=== PATIENT | female | born 1980 | race Caucasian/White ===

== ENCOUNTER 2021-06-05 06:08 | Day surgery (SDC) | payer OTHER, SELFPAY ==
[2021-06-01 13:53] VITALS: BMI 37.0
[2021-06-05] VITALS (9 sets, daily range): BP systolic 109–123; BP diastolic 68–81; PULSE 63–889; RESP 10–16; TEMP 36.1–36.6; O2SAT 95–100; BMI 32.8
--- NOTE | 2021-06-05 | DI.RAD.S_ITS ---
PROCEDURE: XR LUMBAR SPINE 2-3V INDICATIONS: L5-S1 MICRODISCECTOMY TECHNIQUE: 2 views of the lumbar spine were acquired. COMPARISON: None. FINDINGS: Intraoperative images demonstrating surgical instrument with the tip projecting at the L5-S1 level. Dictated by: Jose Cruz Mims M.D. on 06/05/2021 at 11:58 Approved by: Jose Cruz Mims M.D. on 06/05/2021 at 11:58
[2021-06-05] MEDS: LACTATED RINGERS 1,000 ML 42 ML IV ×2 (07:07→08:45)
[2021-06-05 07:18] LABS: Pregnancy Test Serum,Qual Negative (Negative)
--- NOTE | 2021-06-05 07:42 | P.HP_ITS ---
History of Present Illness History of Present Illness Chief complaint: [facility] [place] Narrative: Ms. Mercado is a 40 yo F with 4 months hx of acute worsening of chronic radicular pain to her right leg. She failed conservative care with no improvement of her symptoms. She is scheduled for L5-S1 right microdiscectomy. Patient History Medical History Lumbar disc herniation with radiculopathy Family & Social History Social History: household members spouse,children Tobacco & Substance use: Smoking Status Never smoker alcohol intake current alcohol intake frequency a few times a month Substance Use Type does not use Meds Home Medications and Allergies Home Medications Medication Instructions Recorded Confirmed Type cyclobenzaprine 10 mg tablet 10 mg PO BEDTIME PRN 06/01/21 06/05/21 History meloxicam 15 mg tablet 15 mg PO DAILY 06/01/21 06/05/21 History buspirone 15 mg tablet 15 mg PO TID PRN 06/05/21 06/05/21 History dextroamphetamine-amphetamine ER 20 mg PO DAILY 06/05/21 06/05/21 History 20 mg 24hr capsule,extend release (Adderall XR) sertraline 50 mg tablet 50 mg PO DAILY 06/05/21 06/05/21 History Allergies Allergy/AdvReac Type Severity Reaction Status Date / Time No Known Drug Allergies Allergy Verified 06/05/21 06:35 Exam Vital Signs (past 8 hours): - 06/05/21 06:39 Temperature 97.9 F Pulse Rate 92 H Respiratory Rate 16 Blood Pressure 116/79 Pulse Oximetry 100 Oxygen Delivery Method Room Air Neuro Other: + Straight leg raise to RLE, sensibility decreased to R S1 dermatome, motor strength 4/5 in R gastroc. Objective Labs Labs: Laboratory Results - last 24 hr 06/05/21 06:55 Serum , Qual Negative Assessment & Plan Assessment & Plan narrative: Ms. Blankenship is here for scheduled right L5-S1 microdiscectomy. Risks and benefits of surgery was discussed and informed consent was obtained. Risks for surgery include but not limited to bleeding, infection, nerve/dura injury, persisting pain, need for additional procedure. Patient understands and would like to proceed with surgery and she is scheduled for L5-S1 microdiscetomy. Time Spent With Patient Critical Care time: I spent a total of [] minutes of critical care time on this patient's care today; this time is exclusive of procedural time.
[2021-06-05] MEDS: CEFAZOLIN 1 GM VIAL 2 GM IV (07:55)
--- NOTE | 2021-06-05 08:15 | SUR.OPER ---
Prone on spine table, head in foam head support, padded chest and pelvic supports, gel pad at knees, lower legs supported by pillows; nipples, genitalia and toes free of pressure, arms secured on foam padded arm boards at <90 degrees abduction. Tape over blanket at thigh secured to table.
[2021-06-05] MEDS: BUPIVACAINE 0.25% (PF) 30 ML, EPINEPHrine 0.3 MG INJ (08:20)
[2021-06-05] MEDS: methylPREDNISolone acet DEPO 40 MG/ML VIAL INJ (08:22)
--- NOTE | 2021-06-05 09:02 | PM.OP.1 ---
Operative Date/Time/Diagnoses Date of procedure: 06/05/21 Time of procedure: 07:45 Pre-op diagnosis: 1. L5-S1 disc herniation 2. L5-S1 radiculopathy Post-op diagnosis: same Procedure & Clinicians Procedure: 1. L5-S1 right microdiscectomy 2. Utilization of microsurgical technique and operating microscope Same procedure as scheduled: Yes Indications: Patient has been having chronic back pain and worsening lumbar radiculopathy. Patient failed multiple conservative management with worsening pain weakness and numbness in her lower extremity. Patient has been having difficulty performing activity of daily living. After discussing risks benefits of treatment options, patient elected proceed with surgery. Surgeon: Joo Keys Smoking Tobacco Packer Hand: Brittany Burch Click Yes if Unassisted: No Anesthesia Type: General Operative Notes Closure Type: primary Specimen(s): none sent Estimated Blood Loss (mL): 1 Blood products transfused: none Procedure in detail: Patient was seen in the preoperative area. Risks and benefits of the surgery was discussed with the patient. Informed consent was obtained from the patient and placed in the chart. Surgical site was marked. Patient was taken to the operative room. General anesthesia was administered. Prophylactic antibiotic was given to the patient less than 30 min before the incision was made. Patient was placed into a prone position on the Raúl table. Patient's back was then prepped and draped in the sterile fashion. Time-out was performed at this time. Using AP and lateral C-arm imaging the interval between L5-S1 was identified and marked on patient's back. A 1 inch incision 1 in from midline was made on the right side. The fascia was incised in line with skin incision. Globus MARS retractors was placed inside the incision and docked onto the L5 lamina. Using microsurgical technique and operating microscope, a L5 laminotomy was performed using a Kerrison rongeur. Liagamentum flavum was resected at the site of the laminotomy. The disc space at L5-S1 was identified. Microdiscectomy was performed by incising the annulus with #11 blade. Microcurettes and pituitary was used to removed herniated disc fragments of disc from the epidural space. After the microdiskectomy was completed, the area medial lateral superior and inferior to the area of the microdiskectomy was inspected and explored using a micro curette. No other impinging structure was identified. The wound was then irrigated with sterile normal saline. 40 mg Depo-Medrol was placed into the epidural space. The deep fascia was closed with 1-0 Vicryl. The subcutaneous tissue was closed with 2-0 Vicryl. The skin was closed with 4-0 Monocryl. Patient tolerated the procedure well. There were no complications. Patient was transferred recovery room in stable condition. Complications: none Post-operative Condition: stable Disposition: PACU Plan for aftercare: Discharge to home
[2021-06-05] MEDS: OXYCODONE/ACETAMINOPHEN 5/325 TABLET 1 TAB PO ×2 (09:38→10:13)
[2021-06-05] MEDS: ONDANSETRON 4 MG/2 ML INJ IV (09:48)
[2021-06-05] MEDS: fentaNYL 100 MCG/2 ML INJ IV ×2 (10:02→10:15)
== END 2021-06-05 11:06 | disposition home or self-care (01) ==
PROVIDERS: Physician Assistant; Referring Provider Orthopaedic Surgery Orthopaedic Surgery of the Spine; Visit Provider Orthopaedic Surgery Orthopaedic Surgery of the Spine
PROC: (CPT 63030; principal; 2021-06-05 07:45)
DX: M51.16 Intervertebral disc disorders with radiculopathy, lumbar region (principal)
CPT/HCPCS: 63030; 36415; 72100; 76000; 84703; J0171; J0330; J0690; J1030; J1100; J2405; J2704; J3010

== ENCOUNTER 2022-12-26 06:29 | Day surgery (SDC) | payer OTHER, SELFPAY ==
[2022-12-19 14:24] VITALS: BMI 37.0
[2022-12-26] VITALS (9 sets, daily range): BP systolic 111–134; BP diastolic 64–88; PULSE 67–102; RESP 9–22; TEMP 35.9–36.2; O2SAT 85–99; BMI 31.8
--- NOTE | 2022-12-26 | DI.RAD.S_ITS ---
PROCEDURE: XR LUMBAR SPINE 2-3V INDICATIONS: L4-5 MICRO DISCECTOMY TECHNIQUE: 2 intraoperative fluoroscopic views of the lumbar spine were acquired. COMPARISON: [facility], , XR LUMBAR SPINE 2-3V, 06/05/2021, 9:08. FINDINGS: Intraoperative fluoroscopic views of lumbar spine shows surgical instrument placed posteriorly at right side of L4-5 level. IMPRESSION: Fluoro guidance was provided intraoperatively for L4-5 micro discectomy performed by the ordering physician. Dictated by: Jasiel Grande M.D. on 12/26/2022 at 12:57 Approved by: Jasiel Grande M.D. on 12/26/2022 at 12:58
[2022-12-26] MEDS: LACTATED RINGERS 1,000 ML 42 ML IV ×2 (07:00→09:56)
--- NOTE | 2022-12-26 07:46 | PM.PREOP ---
Pre-operative Note COVID-19 COVID-19 status: Not tested Criteria for continued procedure: Expected advancement of disease process, Possibility delay results in more complex future surgery or treatment, Increased loss of function, Continuing or worsening of significant or severe pain, Deterioration of the patient's condition or overall health and Delay expected to result in less-positive ultimate med/surg outcome Interval Note History & Physical reviewed/Exam performed by Physician: Yes Changes to H&P: No
[2022-12-26] MEDS: CEFAZOLIN 2 GM/100 ML PREMIX 100 ML IV (08:00)
[2022-12-26] MEDS: BUPIVACAINE 0.25% (PF) VIAL 30 ML INJ (08:30)
--- NOTE | 2022-12-26 08:45 | PM.OP.1 ---
Operative Date/Time/Diagnoses Date of procedure: 12/26/22 Time of procedure: 07:40 Pre-op diagnosis: 1. Lumbar disc herniation L4-5 Post-op diagnosis: same Procedure & Clinicians Procedure: 1. L4-5 right microdiscectomy 2. Utilization of microsurgical technique and operating microscope Same procedure as scheduled: Yes Indications: Patient has been having chronic back pain and worsening lumbar radiculopathy. Patient failed multiple conservative management with worsening pain weakness and numbness in her lower extremity. Patient has been having difficulty performing activity of daily living. After discussing risks benefits of treatment options, patient elected proceed with surgery. Surgeon: Joo Keys Compliance Consultant: Minnie Davidson Click Yes if Unassisted: No Operative Notes Closure Type: primary Specimen(s): none sent Estimated Blood Loss (mL): 5 Blood products transfused: none Procedure in detail: Patient was seen in the preoperative area. Risks and benefits of the surgery was discussed with the patient. Informed consent was obtained from the patient and placed in the chart. Surgical site was marked. Patient was taken to the operative room. General anesthesia was administered. Prophylactic antibiotic was given to the patient less than 30 min before the incision was made. Patient was placed into a prone position on the Raúl table. Patient's back was then prepped and draped in the sterile fashion. Time-out was performed at this time. Using AP and lateral C-arm imaging the interval between L4-5 was identified and marked on patient's back. A 1 inch incision 1 in from midline was made on the right side. The fascia was incised in line with skin incision. Globus MARS retractors was placed inside the incision and docked onto the L4 lamina. Using microsurgical technique and operating microscope, a L4 laminotomy was performed using a Kerrison rongeur. Liagamentum flavum was resected at the site of the laminotomy. The disc space at L4-5 was identified. Microdiscectomy was performed by incising the annulus with #11 blade. Microcurettes and pituitary was used to removed herniated disc fragments of disc from the epidural space. After the microdiskectomy was completed, the area medial lateral superior and inferior to the area of the microdiskectomy was inspected and explored using a micro curette. No other impinging structure was identified. The wound was then irrigated with sterile normal saline. 40 mg Depo-Medrol was placed into the epidural space. The deep fascia was closed with 1-0 Vicryl. The subcutaneous tissue was closed with 2-0 Vicryl. The skin was closed with 4-0 Monocryl. Patient tolerated the procedure well. There were no complications. Patient was transferred recovery room in stable condition. Complications: none Post-operative Condition: stable Disposition: PACU Plan for aftercare: Discharge to home
[2022-12-26] MEDS: LORazepam 2 MG/ML INJ 0.25 MG IV (09:11)
[2022-12-26] MEDS: fentaNYL 100 MCG/2 ML INJ IV ×2 (09:12→09:31)
--- NOTE | 2022-12-26 09:36 | SUR.PHASEI ---
Pt demonstrating wide QRS on telementry. THONG Tolentino notified Dr. Chapman. No new orders.
[2022-12-26] MEDS: OXYCODONE/ACETAMINOPHEN 5/325 TABLET 1 TAB PO (10:08)
[2022-12-26] MEDS: ONDANSETRON 4 MG/2 ML INJ IV (10:08)
[2022-12-26] MEDS: METOCLOPRAMIDE 10 MG/2 ML INJ IV (10:36)
--- NOTE | 2022-12-26 10:49 | SUR.PHASEII ---
Ambulated to BR independantly, pain tolerable and no n/v. Voided and dressed self. DC in WC with volunteer to her . All instructions with patient.
== END 2022-12-26 10:50 | disposition home or self-care (01) ==
PROVIDERS: PCP Nurse Practitioner Primary Care; Referring Provider Orthopaedic Surgery Orthopaedic Surgery of the Spine; Visit Provider Orthopaedic Surgery Orthopaedic Surgery of the Spine
PROC: (CPT 63030; principal; 2022-12-26 07:45)
DX: M51.16 Intervertebral disc disorders with radiculopathy, lumbar region (principal)
CPT/HCPCS: 63030; 72100; 76000; J0690; J1100; J1885; J2060; J2250; J2405; J2704; J2765; J2920; J3010; J3490